=== PATIENT | male | born 1980 | race Hispanic/Latino ===

== ENCOUNTER → 2020-02-16 | Outpatient (CLI) | payer OTHER | END | disposition home or self-care (01) | LOC: OIH 15:31 | PROVIDERS: ATTEND Family Medicine | DX: M48.07 Spinal stenosis, lumbosacral region (principal); M54.2 Cervicalgia; M25.562 Pain in left knee | CPT/HCPCS: 72100; 73560 ==

== ENCOUNTER 2021-04-13 09:36 | Emergency (ER) | payer OTHER ==
[~2021-04-13] VITALS: Ht 170.2 cm; Wt 74.8 kg
[2021-04-13 09:44] VITALS: BP 101/70
== END 2021-04-13 18:10 | disposition left against medical advice (07) ==
LOC: EDH 09:36
DX: R05.9 Cough, unspecified (principal); R06.02 Shortness of breath; Z53.21 Procedure and treatment not carried out due to patient leaving prior to being seen by health care provider